=== PATIENT | male | born 1960 | race Caucasian/White ===

== ENCOUNTER 2019-05-22 10:35 | Emergency (ER) | payer OTHER ==
[2019-05-22 11:23] VITALS: BP 160/83
--- NOTE | 2019-05-22 11:53 | UC ---
[facility] HPI - HPI Summary HPI Summary: Pt presents with c/o worsening swelling of right lower gum and tooth pain. Pt states he was diagnosed with a dental abscess and was put on augmentin 4 days ago and notes that symptoms have not improved but have worsened. - History of Current Complaint Chief Complaint: UCDentalProblem Stated Complaint: DENTAL CONCERN Time Seen by Provider: 05/22/19 11:44 Hx Obtained From: Patient Hx From Patient Unobtainable Due To: Dementia Onset/Duration: Gradual Onset, Lasting Days, Still Present, Worse Since - onset Severity: Moderate Pain Intensity: 3 Aggravating Factor(s): Chewing Alleviating Factor(s): Nothing Related History: Swelling - Allergies/Home Medications Allergies/Adverse Reactions: Allergies Allergy/AdvReac Type Severity Reaction Status Date / Time No Known Allergies Allergy Verified 05/22/19 11:15 Home Medications: Home Medications Amlodipine Besylate [Norvasc] 5 mg PO DAILY 05/22/19 [History Confirmed 05/22/19 ] Atenolol 25 mg PO DAILY 05/22/19 [History Confirmed 05/22/19] Clopidogrel Bisulfate [Plavix] 75 mg PO DAILY 05/22/19 [History Confirmed ] Hydrocodone/Acetaminophen [Hydrocodone-Acetamin 7.5-300] 1 tab PO DAILY [History Confirmed 05/22/19] Levothyroxine Sodium 250 mcg PO 05/22/19 [History] Losartan Potassium 25 mg PO DAILY 05/22/19 [History Confirmed 05/22/19] PMH/Surg Hx/FS Hx/Imm Hx Previously Healthy: Yes Endocrine History: Dyslipidemia Cardiovascular History: Cardiac Disease, Hypertension - Surgical History Surgical History: Yes Surgery Procedure, Year, and Place: Stents, knee surgery, appy - Family History Known Family History: Positive: Cardiac Disease - Social History Occupation: Employed Full-time Lives: With Family Alcohol Use: None Substance Use Type: None Smoking Status (MU): Light Every Day Tobacco Smoker Have You Smoked in the Last Year: No Household Exposure Type: Cigarettes Review of Systems All Other Systems Reviewed And Are Negative: Yes Constitutional: Positive: Negative Skin: Positive: Negative Eyes: Positive: Negative ENT: Positive: Dental Pain Respiratory: Positive: Negative Cardiovascular: Positive: Negative Gastrointestinal: Positive: Negative Genitourinary: Positive: Negative Motor: Positive: Negative Neurovascular: Positive: Negative Musculoskeletal: Positive: Negative Neurological: Positive: Negative Psychological: Positive: Negative Is Patient Immunocompromised?: No Physical Exam Triage Information Reviewed: Yes Appearance: Well-Appearing Vital Signs: Initial Vital Signs Temp 98.2 F 05/22/19 11:14 Pulse 56 05/22/19 11:14 Resp 20 05/22/19 11:14 BP 160/83 05/22/19 11:14 Pulse Ox 90 05/22/19 11:14 Vital Signs Reviewed: Yes Eye Exam: Normal ENT Exam: Normal Dental: Positive: Percussion Tenderness @, Gross Decay/Caries @, Dental Fracture @, Abscess @ - right lower gum line ~ tooth # [id number] Neck exam: Normal Neck: Positive: Supple, Enlarged Nodes @ - left submaxillary Respiratory Exam: Normal Musculoskeletal Exam: Normal Neurological Exam: Normal Psychological Exam: Normal Skin Exam: Normal Dental Complaint Course/Dx - Course Course Of Treatment: Pt was instructed to discontinue augmentin and begin clindamycin. Pt verbalized understanding and agreed to plan of care. - Differential Dx/Diagnosis Differential Diagnosis/Dx: Dental Abscess, Dental Caries, Fractured Tooth Provider Diagnosis: Dental abscess Discharge ED - Sign-Out/Discharge Documenting (check all that apply): Patient Departure All imaging exams completed and their final reports reviewed: No Studies - Discharge Plan Condition: Stable Disposition: HOME Prescriptions: Clindamycin Cap(NF) [Clindamycin Cap 300 mg Cap(NF)] 300 mg PO Q6H #40 cap Patient Education Materials: Dental Abscess (ED) Referrals: Gómez Varela MD [Primary Care Provider] - If Needed Additional Instructions: Please follow up with your dental care provider as soon as possible. - Billing Disposition and Condition Condition: STABLE Disposition: Home
== END 2019-05-22 12:03 | disposition home or self-care (01) ==
LOC: UCCORT 10:35
DX: K04.7 Periapical abscess without sinus (principal); I10 Essential (primary) hypertension; F17.200 Nicotine dependence, unspecified, uncomplicated
CPT/HCPCS: 99202; G0463